=== PATIENT | male | born 1940 | race Caucasian/White ===

== ENCOUNTER → 2020-06-18 08:34 | Outpatient (CLI) | payer MEDICARE ==
[2015-06-17 12:20] VITALS: BMI 22.3
[~2020-06-18 08:34] MED LIST: CELEXA20 MG PO; CLARITIN 10 MG10 MG PO; DAPSONE25 MG PO; FLOMAX0.4 MG PO; GLUCOSAMINE & C1 CAP PO; HYDROCODONE-APA1 TAB PO; MOBIC7.5 MG PO; MULTIPLE VITAMI1 TA1 PO; NASONEX NASAL S17 GM NS; OMEPRAZOLE40 MG PO; PHENERGAN25 M1 PO; PROSCAR5 MG PO; VITAMIN B-121000 MCG PO
== END | disposition home or self-care (01) ==
LOC: D.HCCARDIO 06-09 09:00
PROVIDERS: ATTEND Internal Medicine Cardiovascular Disease
DX: I20.9 Angina pectoris, unspecified (principal)

== ENCOUNTER 2020-07-12 07:04 | Day surgery (SDC) | payer MEDICARE ==
[~2020-07-12] VITALS: Ht 180.3 cm; Wt 64.1 kg
--- NOTE | ~2020-07-12 | HEMODYNAMI ---
PATIENT:ELKE IBANEZ MEDICAL RECORD: [id number] : 40 LOCATION:D.CAT ADMISSION DATE: 07/12/20 Generatedon:19:25 Patient name: ELKE IBANEZ Patient #: [id number] SSN: [id number] : 1940 Date of study: 07/12/2020 Page: Of Hemodynamic Procedure Report Patient Data Patient Demographics Procedure consent was obtained First Name: ELKE Gender: Male Last Name: SHAMAR : 1940 Middle Initial: RAY Age: 79 year(s) Patient #: [id number] Race: SSN: [id number] Additional ID: [id number] Contact details [address]: [address] [place] [address] State: [place] City: [place] Zip code: [address] Past Medical History Performed procedures and imaging results Date Procedure Procedure Results Comments 06/18/2020 Stress testing Positive->Intermediate with SPECT MPI risk Allergies Allergen Reaction Date Comments Reported Other allergy 07/12/2020 IODINE, WHEAT, GLUTEN Admission Admission Data Admission Date: 07/12/2020 Admission Time: 7:04 Arrival Date: 07/12/2020 Arrival Time: 0:00 Admit Source: Other Insurance Payor: Private health insurance [facility] #: [id number] Height (in.): 71 BSA: 1.84 (m2) Height (cm.): 180.34 BMI: 20.36 (kg/m2) Weight (lbs.): 146 Weight (kg.): 66.22 Lab Results Lab Result Date: 07/12/2020 Lab Result Time: 0:00 Biochemistry Name Units Result Min Max BUN mg/dl 34 --(----)-* 7 18 Creatinine mg/dl 2 --(----)-* 0.6 1.3 eGFR ml/min 34 *-(----)-- 90 120 NONAFRICAN Procedure Procedure Types Cath Procedure Diagnostic Procedure C [facility] w/Coronaries Sedation Charges Moderate Sedation 10-24 minutes Procedure Description Procedure Date Procedure Date: 07/12/2020 Procedure Start Time: 9:14 Procedure End Time: 9:23 Procedure Staff Name Function Matthias Sagastume MD Performing Physician Freida Carrera, RN Nurse Saundra Syed RT Monitor Michell Gruber RT Scrub Procedure Data Cath Procedure Fluoroscopy Diagnostic fluoroscopy Total fluoroscopy Time: 0.9 time: 0.9 min min Diagnostic fluoroscopy Total fluoroscopy dose: 297 dose: 297 mGy mGy Contrast Material Contrast Material Type Amount (ml) Isovue 300 63 Entry Location Entry Primary Successful Side Size Upsize Upsize Entry Closure Castano ccessful Closure Location (Fr) 1 (Fr) 2 (Fr) Remarks Device Remarks Radial Right 6 Fr Mechanical artery Short Compression Estimated blood loss: 5 ml Diagnostic catheters Device Type Used For End Catheter Placement DIAGNOSTIC [place] 110cm 5 Multi-vessel Fr catheter ([id number]) Angiography Procedure Complications No complications Procedure Medications Medication Administration Route Dosage Oxygen etCO2 Nasal cannula 2 l/min Heparin Flush Bag added to field 2 bags (1000units/500ml NS) Lidocaine 2% added to field 20 0.9% NaCl I.V. 100 ml/hr Radial Cocktail added to field 1 syringe (Verapamil 2mg/Nitro 400mcg/Heparin 1500units) Fentanyl I.V. 25 mcg Versed I.V. 0.5 mg Fentanyl I.V. 25 mcg Versed I.V. 0.5 mg Radial Cocktail I.A. 1 syringe (Verapamil 2mg/Nitro 400mcg/Heparin 1500units) Hemodynamics Rest BSA: 1.84 (m2) O2 Consumption: Estimated: 197.21 (ml/min) O2 Consumption indexed : Estimated:107.18 (ml/min/m) Heart Rate: 51 (bpm) Pressure Samples Time Site Value (mmHg) Purpose Heart Use Rate(bpm) 9:16 LV 109/20,2 Snapshot 81 Gradients Valve Time Site Site Mean SEP/DFP Peak To Heart Use 1 2 (mmHg) (sec/min) Peak Rate (mmHg) (bpm) Aortic 9:16 LV AO 67 Snapshots Pre Cath Intra NCS Post Cath Vital Signs Time Heart Resp SPO2 etCO2 NIBP (mmHg) Rhythm Pain Sedation Rate (ipm) (%) (mmHg) Status Level (bpm) 8:54:02 51 16 97 33.8 153/77(130) NSR 0 (11) 10(A) , No pain 8:58:22 52 13 97 36 159/76(95) NSR 0 (11) 10(A) , No pain 9:02:46 53 19 98 32.3 157/75(121) NSR 0 (11) 10(A) , No pain 9:07:08 52 13 97 22.5 146/73(92) NSR 0 (11) 10(A) , No pain 9:11:28 51 13 97 15.7 145/67(99) NSR 0 (11) 9(A) , No pain 9:15:47 52 15 97 32.3 143/73(113) NSR 0 (11) 9(A) , No pain 9:20:05 59 12 95 12 113/56(81) NSR 0 (11) 9(A) , No pain Medications Time Medication Route Dose Verified Delivered Reason Notes Effectiveness by by 8:57:13 Oxygen etCO2 2 l/min Freida Freida for low 02 Nasal Debi Carrera, sats cannula RN RN 8:57:22 Heparin Flush added 2 bags Freida Freida used for Bag to Debi Carrera, procedure (1000units/500ml field RN RN NS) 8:57:32 Lidocaine 2% added 20ml Freida Matthias for local to vial CarreraSt Thierry parker anesthetic field BRANDON HERNANDEZ 8:57:41 0.9% NaCl I.V. 100 Freida Freida Per ml/hr Debi Carrera, physician RN RN 8:57:47 Radial Cocktail added 1 Freida Freida used for (Verapamil to syringe Debi Carrera, procedure 2mg/Nitro field RN RN 400mcg/Heparin 1500units) 9:04:38 Fentanyl I.V. 25 mcg Freida Freida for sedation Debi Carrera, BRANDON RN 9:04:44 Versed I.V. 0.5 mg Freida Freida for sedation Debi Carrera, BRANDON RN 9:15:33 Fentanyl I.V. 25 mcg Freida Freida for sedation Debi Carrera, BRANDON RN 9:15:35 Versed I.V. 0.5 mg Freida Freida for sedation Debi Carrera, BRANDON TAYLOR 9:15:41 Radial Cocktail I.A. 1 Freida Matthias for (Verapamil syringe Bristow, Mitesh vasodilation 2mg/Nitro RN 400mcg/Heparin 1500units) Procedure Log Time Note 8:34:50 Informed consent obtained and on chart 8:35:12 Diagnostic Cath Status : Elective 8:35:26 Arrival Date: 07/12/2020 12:00:00 AM 8:35:27 Admit Source: Other 8:35:32 Insurance Payor : Private health insurance 8:35:49 Patient Height : 71 inches 8:35:53 Patient Weight : 146 lbs 8:37:07 ACC Patient presents with Stable Angina CCS Anginal Class 2--Slight limitation of ordinary activity. 8:37:10 Procedure Status Elective Heart Cath (OP). 8:37:12 Time tracking: Regular hours (M-F 7:00 - 5:00) 8:37:17 Plan of Care:Hemodynamics will remain stable., Cardiac rhythm will remain stable., Comfort level will be maintained., Respiratory function will remain adequate., Patient/ family verbilizes understanding of procedure., Procedure tolerated without complication., Recovers from procedure without complications.. 8:37:26 H&P Date Dictated: 07/05/2020 Within 30 days and on chart.. 8:37:27 Pre-procedure instructions explained to patient. 8:37:28 Pre-op teaching completed and patient verbalized understanding. 8:37:29 Family in waiting room. 8:37:30 Patient NPO since Midnight. 8:37:58 Patient allergic to Other allergyIODINE, WHEAT, GLUTEN 8:38:04 Alarms reviewed by R. N. 8:38:04 Sharps counted by scrub and verified by R.N. 8:44:08 Saundra ALLEN(R) sent for patient. Start room use. 8:46:07 Patient received from Pre/Post Procedure Room to CCL 2 Alert and oriented. Tansferred to table in Supine position. 8:46:08 Warm blankets applied, and luis daniel hugger turned on for patient comfort. 8:46:09 Correct patient and procedure confirmed by team. 8:46:09 ECG and BP/O2 sat monitors applied to patient. 8:46:11 Full Disclosure recording started 8:46:14 Is the patient allergic to Iodine/contrast media? Yes. 8:46:42 Lab Result : BUN 34 mg/dl 8:46:42 Lab Result : eGFR NONAFRICAN 34 ml/min 8:46:42 Lab Result : Creatinine 2 mg/dl 8:46:49 Lab results completed and on chart. 8:47:00 Stress Test: yes; abnormal anterior and apical 8:47:10 IV patent on arrival in left antecubital with 0.9% NaCl at [facility]. 8:52:45 Baseline sample Acquired. 8:52:45 Vital chart was started 8:52:49 Rhythm: sinus rhythm 8:52:54 Was the patient premedicated? Yes 8:52:56 Is patient on blood thinner?No 8:52:58 Patient diabetic? No. 8:53:01 Previous problem with sedation/anesthesia? No ? 8:53:02 Snore? Yes 8:53:03 Sleep apnea? Yes 8:53:04 Deviated septum? No 8:53:05 Opens mouth fully? Yes 8:53:06 Sticks out tongue? Yes 8:53:08 Airway obstruction? No ? 8:53:10 Dentures? No ? 8:53:14 Pre procedure: right dorsailis pedis pulse 2+ Normal; easily identifiable; not easily obliterated 8:53:16 Pre procedure: left dorsailis pedis pulse 2+ Normal; easily identifiable; not easily obliterated 8:53:19 Patient pain scale 0/10 ?. 8:53:28 Right Radial & Right Groin area was prepped with chlora-prep and draped in sterile fashion 8:56:07 Risk of Mortality: 1.8 8:56:10 Risk of blood transfusion: 16.4 8:56:13 Risk of EKATERINA: 6.6 8:56:25 3b) 30-44 Moderately reduced kidney function. 8:57:13 Oxygen 2 l/min etCO2 Nasal cannula was administered by Freida Carrera RN; for low 02 sats; Verbal order read back and verified. 8:57:22 Heparin Flush Bag (1000units/500ml NS) 2 bags added to field was administered by Freida Carrera RN; used for procedure; Verbal order read back and verified. 8:57:32 Lidocaine 2% 20ml vial added to field was administered by Matthias Sagastume MD; for local anesthetic; Verbal order read back and verified. 8:57:41 0.9% NaCl 100 ml/hr I.V. was administered by Freida Carrera RN; Per physician; Verbal order read back and verified. 8:57:47 Radial Cocktail (Verapamil 2mg/Nitro 400mcg/Heparin 1500units) 1 syringe added to field was administered by Freida Carrera RN; used for procedure; Verbal order read back and verified. 9::31 Physician arrived 9::31 --------ALL STOP TIME OUT------ 9:01:32 Final Timeout: patient, procedure, and site verified with staff and physician. All members of the team are in agreement. 9:01:37 Right Radial & Right Groin site verified by team. 9:01:40 Fire Safety Assessment: A--An alcohol-based skin anteseptic being used preoperatively., C--Open oxygen or nitrous oxide is being used., D--An ESU, laser, or fiber-optic light is being used. 9:01:43 Physical assessment completed. ASA score P 2 - A patient with mild systemic disease as per Matthias Sagastume MD. 9:01:47 Maximum allowable contrast dose (3.7 X eGFR X 0.75)116 ml. 9:01:51 Sedation plan: IV Moderate Sedation Medication:Versed, Fentanyl 9:03:58 Use device set Radial Dx or PCI 9:03:59 ACIST Syringe (26749) opened to sterile field. 9:03:59 Medline Cath Pack ([id number]) opened to sterile field. 9:04:00 Bag Decanter () opened to sterile field. 9:04:00 ACIST Hand Control (33531) opened to sterile field. 9:04:00 ACIST Manifold (76315) opened to sterile field. 9:04:01 Tegaderm 4 x 4 (1626W) opened to sterile field. 9:04:01 MBrace Wrist Support ([id number]) opened to sterile field. 9:04:03 SHEATH 6FR RAIN (8833329) opened to sterile field. 9:04:04 EMERALD Guide Wire (858-927) opened to sterile field. 9:04:38 Fentanyl 25 mcg I.V. was administered by Freida Carrera RN; for sedation; Verbal order read back and verified. 9:04:44 Versed 0.5 mg I.V. was administered by Freida Carrera RN; for sedation; Verbal order read back and verified. 9:12:31 Zero performed for pressure channel P1 9:14:19 Procedure started. 9:14:25 Local anesthetic to right radial artery with Lidocaine 2% by Matthias Sagastume MD.INITIAL ACCESS ONLY 9:14:33 A 6 Fr Short sheath was inserted into the Right Radial artery 9:15:24 A DIAGNOSTIC [place] 110cm 5 Fr catheter (828757) was advanced over the wire and used for Multi-vessel Angiography. 9:15:33 Fentanyl 25 mcg I.V. was administered by Freida Carrera RN; for sedation; Verbal order read back and verified. 9:15:35 Versed 0.5 mg I.V. was administered by Freida Carrera RN; for sedation; Verbal order read back and verified. 9:15:41 Radial Cocktail (Verapamil 2mg/Nitro 400mcg/Heparin 1500units) 1 syringe I.A. was administered by Matthias Sagastume MD; for vasodilation; Verbal order read back and verified. 9:16:21 LV hemodynamics recorded. 9:16:22 LV gram done using VERAS 9:16:24 Injector settings: Ml/sec: 5, Volume: 15, 9:16:37 EF : 55 % 9:17:01 LCA angiography performed. 9:17:03 Injector settings: Ml/sec: 3, Volume: 6, 9:19:07 RCA angiography performed. 9:19:11 Injector settings: Ml/sec: 3, Volume: 6, 9:19:46 Catheter removed. 9:19:50 ZEPHYR REGULAR TR BAND (403707) opened to sterile field. 9:20:01 Sheath removed intact; hemostasis achieved with Mechanical Compression to the Right Radial artery. 9:20:03 Procedure ended.(Physican Out) 9:21:31 Fluoroscopy time 00.90 minutes. 9:21:35 Fluoroscopy dose: 297 mGy 9:21:35 Flurop Dose total: 297 9:21:40 Dose Area Product 18188 mGy/cm. 9:21:44 Contrast amount:Isovue 300 63ml. 9:21:46 Maximum allowable dose exceeded? No. 9:21:47 Sharps counted by scrub and verified by R.N. 9:21:50 [place] band inflated with 10cc of air. 9:21:52 Insertion/operative site no bleeding no hematoma. 9:21:58 Post right radial artery:stable 9:22:01 Post Procedure Pulses reassessed and unchanged 9:22:03 Post procedure rhythm: unchanged. 9:22:05 Estimated blood loss: 5 ml 9:22:06 Post procedure instruction explained to patient.Patient verbalizes understanding. 9:22:07 Patient needs reinforcement of post procedure teaching. 9:22:53 Procedure type changed to Cath procedure, Diagnostic procedure, LHC, [facility] w/Coronaries, Sedation Charges, Moderate Sedation 10-24 minutes 9:22:54 Procedure and supply charges have been captured, reviewed, submitted and are correct. 9:22:58 Procedure Complication : No complications 9:23:00 Vital chart was stopped 9:23:05 [facility] Findings: MVD- CABG consult 9:23:06 Operative report dictated upon procedure completion. 9:23:07 See physician's report for complete and final results. 9:23:08 Report given to Pre/Post Procedure Room. 9:23:11 Patient transfered to Pre/Post Procedure Room with Stretcher. 9:23:16 Procedure ended. 9:23:16 Full Disclosure recording stopped 9:23:22 End room use (Document Last) Device Usage Item Name Manufacture Quantity Catalog Hospital Part Current Minima l Lot# / Number Charge Number Stock Stock Serial# Code ACIST Acist 1 77537 [id number] 182053 [id number] 20 Syringe Medical (29202) Systems Inc Medline Medline 1 [id number] 73414 058131 5 Cath Pack ([id number]) Bag Microtek 1 172241 76513 992069 5 Decanter Medical Inc. () ACIST Hand Acist 1 71258 741692 828678 433775 5 Control Medical (55098) Systems Inc ACIST Acist 1 20987 655813 081228 579885 5 Manifold Medical (63915) Systems Inc Tegaderm 4 3M 1 1626W 577613 101589 259491 5 x 4 (1626W) MBrace Advanced 1 [id number] 805314 23755 165546 5 Wrist Vascular Support Dynamics ([id number]) SHEATH 6FR Cardinal 1 1383908 452079 5715537 435812 5 [facility] (1143242) EMERALD Cardinal 1 502-455 710033 250788 223467 5 Guide Wire Health (646-827) DIAGNOSTIC Terumo 1 68-2633 865302 136041 917700 5 [place] 110cm 5 Fr catheter (152821) ZEPHYR Cardinal 1 927037 865065 5418191 131165 5 REGULAR TR Health BAND (572426) Signature Audit [place] Stage Time Signature Unsigned Intra-Procedure 07/12/2020 Saundra Syed 9:24:11 AM RT(R) Intra-Procedure 07/12/2020 Freida Carrera, 9:24:52 AM RN Intra-Procedure 07/12/2020 Matthias Miller 9:25:06 AM Thierry HERNANDEZ Signatures Performing Physician : Signature : Matthias Sagastume MD Date : Time : Nurse : Freida Carrera, Signature : RN Date : Time : Monitor : Saundra Syed RT Signature : Date : Time : [address] [address]
[2020-07-12] MEDS ORDERED: GABAPENTIN300 MG PO (07:45)
[2020-07-12 07:59] VITALS: BP 118/57; Ht 180.3 cm; Wt 64.1 kg
[2020-07-12 08:10] LABS: BASOPHILS 0 % (0-2); EOSINOPHILS 0 % (0-7); HEMATOCRIT 28.9 % (42.0-54.0); HEMOGLOBIN 9.5 g/dL (13.5-17.5); IMMATURE GRANULOCYTES 0.4 % (0-5); LYMPHOCYTES 5.4 % (15-50); MCH 31.8 pg (26.0-34.0); MCHC 32.9 g/dL (31.0-37.0); MCV 96.7 fL (80.0-100.0); MEAN PLATELET VOLUME 8.8 fL (7.4-10.4); MONOCYTES 1.6 % (2-11); NEUTROPHIL ABS# 5.11 10x3/uL (1.78-5.38); NEUTROPHILS 92.6 % (40-80); PLATELET COUNT 144 10x3/uL (130-400); RBC 2.99 10x6/uL (4.20-6.10); RDW 12.4 % (11.5-14.5); WBC 5.5 10x3/uL (4.8-10.8)
[2020-07-12 08:27] LABS: ANION GAP 12.7 mmol/L (8-16); CALCIUM 8.8 mg/dL (8.5-10.1); CHOL - HDL RATIO 2.1 ratio (2.3-4.9); POTASSIUM - SERUM 4.7 mmol/L (3.5-5.1)
--- NOTE | 2020-07-12 09:30 | NUR ---
PT RECEIVED VIA STRETCHER FROM [facility] SPECIALIST BACK TO ROOM 9 FOR RECOVERY. PT SLEEPING BUT VERALLY AROUSABLE. IV PATENT INFUSING VIA L ARM PER ORDERS. PT PLACED ON CARDIAC MONITORS AND O2 AT 2L/NC. ZYPER BAND AND IMMOBILIZER TO R ARM/WRIST. NO S/S HEMATOMA OR BLEEDING. PULSES PALPALABLE AND CAP REFILL BRISK. DR LATHAM WAS IN ROOM AND SPOKE WITH REGARDING PROCEDURE RESULTS AND PLAN OF CARE PRIOR TO PT ARRIVAL. CALL LIGHT IN REACH
--- NOTE | 2020-07-12 09:45 | NUR ---
PT SLEEPING, VERBALLY AROUSABLE. ZBAND AND IMMOBILIZER IN PLACE NO S/S HEMATOMA OR BLEEDING NOTED. PULSES PALPABLE, CAP REFILL BRISK. VSS AT PRESENT. AT BS, CALL LIGHT IN REACH
--- NOTE | 2020-07-12 10:15 | NUR ---
PT RESTING COMFORTABLY, DENIES PAIN OR NEEDS AT THIS TIME. ZBAND AND IMMOBILIZER IN PLACE, NO S/S HEMATOMA OR BLEEDING NOTED. VSS. CALL LIGHT IN REACH, REMAINS AT BS.
--- NOTE | 2020-07-12 10:40 | NUR ---
4CC AIR REMOVED FROM Z BAND, NO BLEEDING OR S/S HEMATOMA NOTED. PO FLUIDS GIVEN, PT OFFERED A SANDWICH BUT DECLINES AT THIS TIME.
--- NOTE | 2020-07-12 11:02 | NUR ---
2 ADD'L CC AIR REMOVED FROM Z BAND, NO BLEEDING OR SWELLING NOTED. PT TOLERATING PO FLUIDS. VSS. CALL LIGHT REMAINS IN REACH
--- NOTE | 2020-07-12 11:20 | NUR ---
REMAINING AIR AND Z BAND REMOVED. NO BLEEDING OR HEMATOMA NOTED. 2X2 AND SM TEGADERM DRESSING APPLIED. IMMOBILIZER REPOSITIONED. DISCHARGE INSTRUCTIONS REVIEWED W PT AND , BOTH VERBALIZED UNDERSTANDING. IV REMOVED W CATH INTACT, MONITORS REMOVED AND PT UP TO DRESS FOR DISCHARGE.
--- NOTE | 2020-07-12 11:42 | NUR ---
PT TO BR VIA WC, VOIDING W/O DIFFICULITY. PT THEN DISCHARGED VIA WC TO WAITING IN PRIVATE VEHICLE. PT HAD ALL BELONGINGS AND DISCHARGE PAPERWORK
--- NOTE | 2020-07-12 16:00 | OP ---
PATIENT NAME: ELKE IBANEZ MEDICAL RECORD: [id number] :40 LOCATION:D.CAT ADMISSION DATE: SURGEON: KAVON LATHAM MD DATE OF OPERATION: 07/12/2020 PROCEDURES: Left heart catheterization, selective coronary angiography, right radial approach. CATHETERS: Radial sheath. Midway catheter. The procedure was well tolerated. The patient returned to [place]. Sheath removed. TR band was placed. FINDINGS: Left ventriculography in 30-degree VERAS view: Normal wall motion and normal systolic function. CORONARY ANATOMY: Left main: Left main is free of disease. LAD: At the takeoff of 2 large diagonals has a true ostial stenosis for both diagonals. The LAD itself has 70-80% stenosis after the takeoff of the diagonals. There is a large ramus branch and has ostial stenosis of 90% just after the true ostial discharge takeoff from the left main. Circumflex: Free of disease. Right coronary artery: Free of disease. IMPRESSION: Multivessel coronary artery disease, obviously high risk anatomy from an interventional standpoint. We will ask Dr. Ramirez for consultation for probable coronary artery bypass grafting. TRANSINT:[id number] Voice Confirmation ID: [id number] DOCUMENT ID: [id number] KAVON LATHAM MD at 1600 CC: [id number] DICTATION DATE: 07/12/20927 EQUIPMENT DRIVER: 07/12/20 1312 [facility] 07/12/20 [address] [place] [address]
== END 2020-07-12 11:40 | disposition home or self-care (01) ==
LOC: D.CATH 07:04
PROVIDERS: ATTEND Internal Medicine Interventional Cardiology
DX: I20.9 Angina pectoris, unspecified (principal); R07.9 Chest pain, unspecified

== ENCOUNTER 2020-07-26 13:00 | Inpatient (IN) | payer MEDICARE, OTHER ==
[~2020-07-26] VITALS: Ht 177.8 cm; Wt 66.6 kg
[~2020-07-26 13:00] MED LIST changes: +GABAPENTIN300 MG PO
[2020-07-26 16:13] LABS: BASOPHILS 0.7 % (0-2); EOSINOPHILS 1.4 % (0-7); HEMATOCRIT 27.5 % (42.0-54.0); HEMOGLOBIN 8.8 g/dL (13.5-17.5); IMMATURE GRANULOCYTES 0.3 % (0-5); LYMPHOCYTE ABS# 1.03 10x3/uL (1.32-3.57); LYMPHOCYTES 17.9 % (15-50); MCH 31.8 pg (26.0-34.0); MCV 99.3 fL (80.0-100.0); MEAN PLATELET VOLUME 8.6 fL (7.4-10.4); MONOCYTES 7.1 % (2-11); NEUTROPHIL ABS# 4.19 10x3/uL (1.78-5.38); NEUTROPHILS 72.6 % (40-80); PLATELET COUNT 163 10x3/uL (130-400); RBC 2.77 10x6/uL (4.20-6.10); RDW 12.5 % (11.5-14.5); WBC 5.8 10x3/uL (4.8-10.8)
[2020-07-26 16:23] LABS: APTT 31.6 SECONDS (22.8-39.4); INR 1.21 (0.85-1.17); PROTIME 14.2 SECONDS (11.6-15.0)
[2020-07-26 16:27] LABS: BILIRUBIN NEGATIVE (NEGATIVE); KETONE NEGATIVE (NEGATIVE); NITRITE NEGATIVE (NEGATIVE); UROBILINOGEN NORMAL mg/dL (< 2)
[2020-07-26 16:32] LABS: BACTERIA FEW HPF (NONE SEEN)
[2020-07-26 16:39] LABS: ALBUMIN 3.6 g/dL (3.4-5.0); ANION GAP 10.4 mmol/L (8-16); BILIRUBIN - TOTAL 0.59 mg/dL (0.2-1.3); CALCIUM 8.6 mg/dL (8.5-10.1); CARBON DIOXIDE 28.3 mmol/L (21.0-32.0); CREATININE - SERUM 1.7 mg/dL (0.6-1.3); PHOSPHOROUS 4.8 mg/dL (2.5-4.9); POTASSIUM - SERUM 4.7 mmol/L (3.5-5.1); PROTEIN - SERUM 6.4 g/dL (6.4-8.2); T4 THYROXIN - FREE 0.75 ng/dL (0.76-1.46); THYROID STIMULATING HORMONE 1.6 uIU/mL (0.36-3.74); URIC ACID 6.5 mg/dL (2.6-7.2)
[2020-07-29] VITALS (48 sets, daily range): BP systolic 96–160; BP diastolic 46–95; BMI 20.4; BMI 21.8
[2020-07-29] MEDS ORDERED: OMEPRAZOLE40 MG PO (05:41)
[2020-07-29] MEDS ORDERED: GALZIN25 MG PO (05:42)
[2020-07-29] MEDS ORDERED: VITAMIN D325 MC1 PO (05:43)
[2020-07-29] MEDS ORDERED: BAYER CHEWABLE81 MG PO (05:45)
[2020-07-29] MEDS ORDERED: glucosamine chondroi (05:45)
--- NOTE | 2020-07-29 08:01 | NUR ---
CVL AND ARTERIAL LINE PLACED BY ANESTHESIA, STOCKING AND SCD PLACED POST OP, SOME DIFFICULTY PLACEING CARMONA DR COOL NOTIFIED, IRMA.
[2020-07-29 12:53] LABS: BASOPHILS 0.2 % (0-2); EOSINOPHILS 0.7 % (0-7); HEMATOCRIT 34.2 % (42.0-54.0); HEMOGLOBIN 11.2 g/dL (13.5-17.5); IMMATURE GRANULOCYTES 0.3 % (0-5); LYMPHOCYTE ABS# 0.84 10x3/uL (1.32-3.57); LYMPHOCYTES 7.8 % (15-50); MCH 31.8 pg (26.0-34.0); MCHC 32.7 g/dL (31.0-37.0); MCV 97.2 fL (80.0-100.0); MEAN PLATELET VOLUME 9.6 fL (7.4-10.4); MONOCYTES 6.3 % (2-11); NEUTROPHIL ABS# 9.15 10x3/uL (1.78-5.38); NEUTROPHILS 84.7 % (40-80); RBC 3.52 10x6/uL (4.20-6.10); RDW 13.6 % (11.5-14.5); WBC 10.8 10x3/uL (4.8-10.8)
[2020-07-29 12:56] LABS: PLATELET COUNT 117 10x3/uL (130-400)
--- NOTE | 2020-07-29 13:00 | NUR ---
PT ARRIVED TO UNIT AT 1232 VIA BED. CONNECTED TO BULK FLUIDS HANDLER. ETT SIZE 8.0, 24 AT THE LIP RIGHT. TPM IN PLACE AAI 80/10/0.5. RIJ CVL WITH PLASMOLYTE AT 100ML/HR AND NILA AT 0.6MCG/KG/MIN. RIGHT RADIAL JAVON IN PLACE. MIDSTERNAL INCISON MERCEDEZ, SUBTERNAL CT CONNECTED TO 20CM SUCTION. NO AIR LEAK NOTED. LEFT RAKESH DRAIN NOTED. CARMONA CATHETER IN PLACE WITH BLOODY URINE NOTED. RLE HARVEST SITES WRAPPED IN COBAN DRESSING. WRIST RESTRAINTS APPLIED UPON ARRIVAL PER ORDER. SAFETY MEASURES IN PLACE. NURSE AT BEDSIDE FOR CLOSE MONITORING.
[2020-07-29 13:14] LABS: ALBUMIN 2.1 g/dL (3.4-5.0); ANION GAP 13.9 mmol/L (8-16); BILIRUBIN - TOTAL 0.78 mg/dL (0.2-1.3); CALCIUM 7.9 mg/dL (8.5-10.1); CARBON DIOXIDE 22.1 mmol/L (21.0-32.0); CREATININE - SERUM 1.2 mg/dL (0.6-1.3); MAGNESIUM - SERUM 2.4 mg/dL (1.8-2.4); PROTEIN - SERUM 3.7 g/dL (6.4-8.2)
--- NOTE | 2020-07-29 13:24 | OP ---
PATIENT NAME: ELKE IBANEZ MEDICAL RECORD: [id number] :40 LOCATION:D.CVI D.CV06 ADMISSION DATE:07/29/20 SURGEON: EJISON COOL MD DATE OF OPERATION: 07/29/2020 SURGEON: Jeison Cool MD PROCEDURE PERFORMED: 1. Coronary artery bypass graft times 4 (left internal mammary artery to LAD, reverse saphenous vein graft from aorta to the ramus intermedius and from the side of that vein graft sequentially to the proximal and distal branches of the bifurcating diagonal). 2. Endoscopic saphenous vein harvest. PREOPERATIVE DIAGNOSIS: Coronary artery disease. POSTOPERATIVE DIAGNOSIS: Coronary artery disease. ANESTHESIA: General endotracheal anesthesia. ADDITIONAL DIAGNOSES: Chronic anemia and celiac disease. COMPLICATIONS: None. SPECIMENS: None. CONDITION: Stable. DISPOSITION: CV ICU. Blood loss total with 3 packed red blood cells and 1 platelets. OPERATIVE FINDINGS: 1. The patient had good quality greater saphenous vein from the right lower extremity. 2. A 2 to 3 mm internal mammary with good flow. The LAD was a 1.5 mm vessel with severe disease, worse than expected from the angiogram. 3. Unexpectedly fatty heart with good contractility. The diagonal vessels were deep in the epicardial fat 1.5 mm vessels. 4. Ramus intermedius 2.0 mm. 5. History of chronic anemia. PROCEDURE INDICATION: Coronary artery disease. PROCEDURE IN DETAIL: The patient was brought to the operating suite. General anesthesia was obtained. The patient was prepped and draped. Greater saphenous vein was harvested endoscopically from the right lower extremity. Side branches were divided with electrocautery. Vessels were ligated proximally and distally removed. Side branches were divided and tied and thin. Sites were oversewn. The leg was irrigated and closed in 2 layers. Median sternotomy incision was made. Subcutaneous tissue was divided with electrocautery. Sternum was divided with a saw. Left hemisternum was elevated. Left pleural cavity was entered. Left internal mammary artery and vein was taken down as a pedicle graft. Sternal retractor was placed. Pericardium was OPERATIVE REPORT [id number] ELKE IBANEZ opened. Heparin was given. Aorta was cannulated. Dual stage venous cannula was inserted. The internal mammary was clipped distally and made ready for anastomosis. Activated clotting time was appropriately elevated and the patient was placed on cardiopulmonary bypass. Sites for distal anastomosis were selected. The patient's temperature was drifted down where the antegrade cardioplegia cannula was inserted. Crossclamp was placed. Cardioplegia given antegrade. This was repeated at 15 to 20 minute intervals during the crossclamp time. Distal anastomosis was performed in standard technique. Proximal anastomosis one to the aorta with a 4.0 mm punch and one end-to-side [id number] anastomosis, which was used in the de-airing site after removing the cross clamp, then the patient resumed a spontaneous rhythm. Atrial and ventricular pacing wires were placed due to sinus bradycardia. The patient was paced, fully rewarmed, weaned from cardiopulmonary bypass and was stable. The patient was decannulated. Cannulation sites were oversewn. Protamine was given. Thorough irrigation was undertaken. Hemostasis was ensured. The grafts lay appropriately. Good Doppler signal in the internal mammary artery. The left chest was evacuated and irrigated. The internal mammary harvest site was inspected for bleeding. Pericardial fat was loosely reapproximated in the midline. Drains in the mediastinum, one with the tip in the right pleural cavity, one in the left pleural cavity. The sternum was closed with wires. Fascia was closed. Subcutaneous tissue was closed. Skin was closed. Dermabond was placed. The needle and sponge counts were reported as correct and the patient was taken to the ICU in stable condition. TRANSINT:[id number] Voice Confirmation ID: [id number] DOCUMENT ID: [id number] JEISON COOL MD at 1324 CC: STARLA TAYLOR MD and KAVON LATHAM MD [id number] DICTATION DATE: 07/29/20 1246 RENEWALS SPECIALIST: 07/29/20 1313 ADM IN [facility] [address] [place] [address]
--- NOTE | 2020-07-29 13:26 | NUR ---
UNIT OF PLATELETS INITIATED PER DR. COOL'S ORDER.
[2020-07-29 13:49] LABS: INR 1.84 (0.85-1.17); PROTIME 19.7 SECONDS (11.6-15.0)
[2020-07-29 13:50] LABS: APTT 39.8 SECONDS (22.8-39.4)
--- NOTE | 2020-07-29 13:52 | NUR ---
PT AND INR RESULTS REPORTED TO DR. COOL. ORDERED 2 FFP TO BE GIVEN.
--- NOTE | 2020-07-29 14:09 | NUR ---
BLOOD BANK CALL TO SEE WHEN FFP WOULD BE READY. WAS INFORMED THAT IT WILL BE ABOUT 30MIN.
--- NOTE | 2020-07-29 14:45 | NUR ---
PT STILL NOT OPENING EYES BUT FOLLOW SOME SIMPLE COMMANDS. VENT RATE TURNED DOWN TO 10 PER RESPIRATORY THERAPY.
--- NOTE | 2020-07-29 15:05 | NUR ---
2 UNITS FFP FINISHED INFUSING AT THIS TIME PER ORDER. PT TOLERATED WELL. WILL CONTINUE TO MONITOR.
--- NOTE | 2020-07-29 16:37 | NUR ---
ABG'S AFTER 1HR ON CPAP TRIAL REPORTED TO DR. COOL. WAIT FOR PATIENT TO BREATHE BETTER BEFORE EXTUBATING. RESPIRATORY THERAPY NOTIFIED.
--- NOTE | 2020-07-29 17:35 | NUR ---
UPDATE GIVEN TO DR. COOL ON CT OUTPUT. AT 1700 PT PUT OUT 80CC. AND HAS PUT OUT ABOUT 50CC IN LAST 1/2HR. URINE REMAINS BLOODY. ORDERED H&H AND PT &INR.
[2020-07-29 17:50] LABS: HEMATOCRIT 28.7 % (42.0-54.0); HEMOGLOBIN 9.3 g/dL (13.5-17.5)
[2020-07-29 17:59] LABS: INR 1.5 (0.85-1.17); PROTIME 16.8 SECONDS (11.6-15.0)
--- NOTE | 2020-07-29 17:59 | NUR ---
H&H 9.[address]. COOL NOTIFIED. WAITING ON INR RESULTS.
--- NOTE | 2020-07-29 18:10 | NUR ---
INR 1.50. DR. COOL NOTIFIED.
--- NOTE | 2020-07-29 18:13 | NUR ---
ORDERS RECEIVED. GIVE 1UNIT PRBC'S, 2 FFP, AND 1 PLATELETS.
--- NOTE | 2020-07-29 18:32 | NUR ---
PT CONTINUES ON SPONTANEOUS TRIAL. BREATHING RATE 12BREATHS/MIN. WAKES UP TO VOICE BUT DOES NOT REMAIN AWAKE AT THIS TIME. DR. COOL NOTIFIED. HE WANTS TO WAIT UNTIL PLATELET ARE GIVEN TO RECHECK ABG'S.
--- NOTE | 2020-07-29 18:37 | NUR ---
1 UNIT OF PRBC INITIATED AT THIS TIME PER ORDER.
[2020-07-30] VITALS (54 sets, daily range): BP systolic 79–131; BP diastolic 36–74; Ht 177.8 cm; Wt 66.6 kg
[2020-07-30 05:17] LABS: ALBUMIN 2.6 g/dL (3.4-5.0); BILIRUBIN - TOTAL 0.66 mg/dL (0.2-1.3); CALCIUM 7.6 mg/dL (8.5-10.1); CARBON DIOXIDE 25.9 mmol/L (21.0-32.0); CREATININE - SERUM 1.4 mg/dL (0.6-1.3)
[2020-07-30 05:20] LABS: HEMATOCRIT 26.3 % (42.0-54.0); HEMOGLOBIN 8.4 g/dL (13.5-17.5); MCH 30.7 pg (26.0-34.0); MCHC 31.9 g/dL (31.0-37.0); MEAN PLATELET VOLUME 9.5 fL (7.4-10.4); RBC 2.74 10x6/uL (4.20-6.10); WBC 9.1 10x3/uL (4.8-10.8)
[2020-07-30 05:21] LABS: ANION GAP 11.3 mmol/L (8-16); POTASSIUM - SERUM 4.2 mmol/L (3.5-5.1)
--- NOTE | 2020-07-30 13:26 | NUR ---
NOTED ORDER TO D/C INSULIN GTT AT THIS TIME-FSBS 222-PAGED [facility] FOR ADDITIONAL ORDERS-
--- NOTE | 2020-07-30 16:23 | NUR ---
1500-DR NOGUEIRA NOTIFIED OF [id number] AND 3UNITS ON INSULIN GTT 1545-INSULIN GTT D/C'D-S/S ORDERED 1615-DR COOL AT BEDSIDE-PT ASSISTED TO BED-TOLERATED WELL-R RADIAL JAVON D/C'D-TOLERATED WELL-R IJ SALINE LOCKED
--- NOTE | 2020-07-30 17:14 | TEE ---
PATIENT:ELKE IBANEZ MEDICAL RECORD: [id number] LOCATION:[place] [address] AGE OF PATIENT: 79 ADMISSION DATE: 07/29/20 SEX: M REFERRING PHYSICIAN: INTERPRETING PHYSICIAN: KAVON LATHAM MD TRANSESOPHAGEAL ECHOCARDIOGRAM Date: 07/29/20 BOBBY CHARGE Y INDICATIONS: CABG PREMEDICATIONS: PATIENT'S RESPONSE PROCEDURE DOPPLER MEASUREMENTS: LVIT LA PA RA LVOT RVOT Asc. Ao AV Gradient Peak AV Mean AV Area MV Gradient Peak MV Mean MV Area INTERPRETATION: Doppler: 2-D: COLOR FLOW DOPPLER NORMAL SALINE STUDY: MISCELLANOUS: DIAGNOSIS: PLAN: Health Program Analyst:3 Dr. Jaffe It Software Developer: Alena FABIAN COMMENTS: DATE OF SERVICE: 07/29/2020 PROCEDURE: Intraoperative BOBBY. FINDINGS: Preop shows normal LV wall motion and wall thickening, EF greater than or equal to 55%. Aortic valve is tricuspid. Good valve excursion. Left atrium appears normal. Mitral valve appears normal. Mild MR. Postop, good wall motion in all cardiac segments and good function, EF 55% or better. Aortic valve is tricuspid with good valve excursion. Left atrium appears normal. TRANSESOPHAGEAL ECHOCARDIOGRAM REPORT [id number] SPEEDY IBANEZ Mitral valve appears normal with mild MR. TRANSINT:[id number] Voice Confirmation ID: [id number] DOCUMENT ID: [id number] at 1714 CC: [id number] DICTATION DATE: 07/29/20 1427 PHARMACY CASHIER: 07/29/20 2236 ADM IN [place] [id number] [place] [address]
--- NOTE | 2020-07-30 17:14 | OP ---
PATIENT NAME: ELKE IBANEZ MEDICAL RECORD: [id number] :40 LOCATION:[facility] ADMISSION DATE:07/29/20 SURGEON: KAVON LATHAM MD DATE OF OPERATION: 07/29/2020 PROCEDURE: PTCA stenting to the ramus intermedius branch. DESCRIPTION OF PROCEDURE: After a 6-Brazilian sheath was placed in the right femoral artery, we actually used the IFR wire to cross the severely 98% stenosed ramus down this portion of vessel. Stents deployed were 2.75 x 26 and 2.75 x 18 Jon drug-eluting stents up to 16 atmospheres for 45 seconds. Final angiography shows excellent resolution of a diffuse 80% stenosis. No significant residual. IFR wire was almost normalized at 0.96 after the procedure. KACIE flow was 3 throughout the procedure. Sheath was closed with ExoSeal device. The patient was placed on Plavix. Heparin was used during the case. TRANSINT:[id number] Voice Confirmation ID: [id number] DOCUMENT ID: [id number] KAVON LATHAM MD at 1714 CC: [id number] DICTATION DATE: 07/29/20 1426 TOW BOAT CAPTAIN: 07/29/20 2319 ADM IN [place] [id number] [place] [id number]
[2020-07-31] VITALS (24 sets, daily range): BP systolic 99–120; BP diastolic 45–60
[2020-07-31 05:15] LABS: HEMATOCRIT 25.4 % (42.0-54.0); HEMOGLOBIN 8.1 g/dL (13.5-17.5); MCH 30.7 pg (26.0-34.0); MCHC 31.9 g/dL (31.0-37.0); MCV 96.2 fL (80.0-100.0); MEAN PLATELET VOLUME 9.2 fL (7.4-10.4); RBC 2.64 10x6/uL (4.20-6.10)
[2020-07-31 05:35] LABS: ALBUMIN 2.5 g/dL (3.4-5.0); ANION GAP 9.2 mmol/L (8-16); BILIRUBIN - TOTAL 0.65 mg/dL (0.2-1.3); CALCIUM 8.2 mg/dL (8.5-10.1); CREATININE - SERUM 1.1 mg/dL (0.6-1.3); POTASSIUM - SERUM 4.2 mmol/L (3.5-5.1); PROTEIN - SERUM 5.1 g/dL (6.4-8.2)
--- NOTE | 2020-07-31 08:08 | NUR ---
ASSISTED TO BEDSIDE CHAIR-TOLERATED WELL-SR ON MONITOR-REQUESTED JUICE AND JELLO FOR BREAKFEST
--- NOTE | 2020-07-31 10:34 | NUR ---
0930-AMBULATED IN HALLWAY WITH PHYSICAL THERAPY-TOLERATED WELL-DR COOL AT BEDSIDE-INFORMED OF CHEST TUBE DRAINAGE-CHARTED WELL-CHEST TUBE PLACED TO WATER SEAL DIRECTED 1010-PRBC [id number]-[id number] ORDERED PT AWAKE AND ALERT-SET TO RUN OVER 1.5HR
--- NOTE | 2020-07-31 11:54 | NUR ---
PRBC INFUSED-DR HAN AT BEDSIDE-NO FURTHER ORDERS AT THIS TIME
--- NOTE | 2020-07-31 14:14 | NUR ---
AMBULATED WITH PHYSICAL THERAPY-O2 AT 2L-SR ASSISTED TO BED-
--- NOTE | 2020-07-31 17:52 | NUR ---
UCAF-168-6 SEC-PT STATED DREAMING ABOUT EVENTS AT HOME-SPONT RETURN TO SR-R WRIST JAVON SUTURE REMOVED
--- NOTE | 2020-07-31 23:07 | NUR ---
PATIENT HR 140 BRIEFLY, THEN DROPPED DOWN TO 58. NURSE ENTERED ROOM AND HR BACK TO 70'S. PATIENT WAS SLEEPING WELL WITHOUT ANY S/S OF DISTRESS.
[2020-08-01] VITALS (30 sets, daily range): BP systolic 81–118; BP diastolic 49–67
--- NOTE | 2020-08-01 00:55 | NUR ---
0755- Dr Ramirez contacted for patient HR. Fluxuating between 50 and 140 and occasional bigeminy. New orders received and entered. Meds administered. Robert Gruber RN
--- NOTE | 2020-08-01 01:40 | NUR ---
Patient feeling pressure in bladder. Catheter draining minimal for last 2 hours. Irrigated pabon cath with 10cc NS. Sedement and small clots noted to tubing after irrigation and pabon cath draining without issue. Robert Gruber RN
[2020-08-01 04:33] LABS: HEMATOCRIT 26.8 % (42.0-54.0); HEMOGLOBIN 8.6 g/dL (13.5-17.5); MCH 30.1 pg (26.0-34.0); MCHC 32.1 g/dL (31.0-37.0); MEAN PLATELET VOLUME 9.4 fL (7.4-10.4); RBC 2.86 10x6/uL (4.20-6.10); WBC 6.6 10x3/uL (4.8-10.8)
[2020-08-01 04:48] LABS: MCV 93.7 fL (80.0-100.0)
[2020-08-01 05:05] LABS: ALBUMIN 2.2 g/dL (3.4-5.0); ALKALINE PHOSPHATASE 57 U/L (30-120); ALT (SGPT) 33 U/L (10-68); BILIRUBIN - TOTAL 0.51 mg/dL (0.2-1.3); CALC OSMOLALITY 283 mosm/kg (275-300); CALCIUM 8.1 mg/dL (8.5-10.1); CARBON DIOXIDE 26.3 mmol/L (21.0-32.0); CHLORIDE - SERUM 106 mmol/L (98-107); GLUCOSE 135 mg/dL (74-106); POTASSIUM - SERUM 3.9 mmol/L (3.5-5.1); PROTEIN - SERUM 4.9 g/dL (6.4-8.2); SODIUM 139 mmol/L (136-145); UREA NITROGEN 24 mg/dL (7-18); eGFR NON AFRICAN AMERICAN 76 mL/min (90-120)
--- NOTE | 2020-08-01 06:37 | NUR ---
DR COOL CONTACTED. PATIENT HR 130S AND DROPPING TO 40S. PACER TURNED ON DD AT A RATE OF 50 AND NEW ORDER FOR AMIODORONE GIVEN. Robert BRICEÑO RN
--- NOTE | 2020-08-01 10:19 | NUR ---
0700-NOTED HEART RHYTHM:RAPID CHANGE BETWEEN UCAF/SR WITH PAC AND 75-100% PACED AP VS OR DUAL PACED-REMAINS IN BED-PT STATES FEELS NO DISTRESS-RESP RX HELD AT THIS TIME-CORDARONE DECREASED TO 0.5MG PER ORDER-K LEVEL 3.9-REPLACEMENT STARTED PER PROTOCOL 0800-NOTED LONGER PERIODS OF SR WITH PAC-CONTINUED TO BE INTERSPERSED WITH UCAF AND PACED-LESSER FREQUENCY-ASSISTED TO BEDSIDE COMMODE-THEN ASSISTED TO CHAIR-REVIEWED MONITOR THROUGH 2 LEADS NOTED ?JUNCTIONAL? TACH WITH ATRIUM SENS ONLY? 09-HELD LOPRESSOR PO -FOR DR COOL REVIEW THIS AM
--- NOTE | 2020-08-01 18:08 | NUR ---
1030-DR COOL AT BEDSIDE-STATUS REPORT GIVEN-PACEMAKER TURNED OFF AT THIS TIME DIRECTED UCAF-128- 1040-DR COOL AT BEDSIDE-PACER ADJUSTED BY SAME TO VVI50/10/SENS1 NOTED JUCTIONAL RHYTHM AT THIS TIME-CORDARONE GTT TURNED OFF DIRECTED--MEDIASTINAL CHEST TUBES REMOVED BY DR COOL-ATRIAL PACER WIRE SECURED-VENTRICULAR WIRE ATTACHED TO PACEMAKER ONLY -DIRECTED TO BEDREST AT THIS TIME-MAP BP -56-NEOSYNEPHRINE GTT STARTED AT 0.3 MCG/KG/MIN 1330-NOTED PRIMARILY-SR WITH PAC ON MONITOR-NEOSYNEPHRINE OFF AT THIS TIME MEAN BP 74-HR 72 1630-ASSISTED PT TO BEDSIDE COMMODE 1700ASSISTED TO BEDSIDE CHAIR-DINNER MEAL SR WITH PAC
[2020-08-02] VITALS (19 sets, daily range): BP systolic 93–127; BP diastolic 47–70
[2020-08-02 04:34] LABS: HEMATOCRIT 25.4 % (42.0-54.0); HEMOGLOBIN 8.2 g/dL (13.5-17.5); MCH 29.9 pg (26.0-34.0); MCHC 32.3 g/dL (31.0-37.0); MCV 92.7 fL (80.0-100.0); MEAN PLATELET VOLUME 9.3 fL (7.4-10.4); RBC 2.74 10x6/uL (4.20-6.10); WBC 5.6 10x3/uL (4.8-10.8)
[2020-08-02 04:49] LABS: ALBUMIN 2.1 g/dL (3.4-5.0); ALKALINE PHOSPHATASE 65 U/L (30-120); ALT (SGPT) 30 U/L (10-68); BILIRUBIN - TOTAL 0.78 mg/dL (0.2-1.3); CALC OSMOLALITY 274 mosm/kg (275-300); CALCIUM 8.1 mg/dL (8.5-10.1); CHLORIDE - SERUM 107 mmol/L (98-107); GLUCOSE 98 mg/dL (74-106); PROTEIN - SERUM 4.6 g/dL (6.4-8.2); SODIUM 136 mmol/L (136-145); UREA NITROGEN 22 mg/dL (7-18); eGFR NON AFRICAN AMERICAN 76 mL/min (90-120)
[2020-08-02 04:50] LABS: POTASSIUM - SERUM 4.5 mmol/L (3.5-5.1)
--- NOTE | 2020-08-02 11:06 | NUR ---
Nutrition Follow-up: POD 4 CABG. Good appetite/PO intake; reports eating ~90% of breakfast this AM. Denies N/V/C/D, chewing/swallowing difficulties. Diet: Regular, gluten-free PO intake: 50-100% Wt: 156.5# (08/02); 152.1# (07/29) Last BM: 08/02 Labs noted: Ca 8.1, Alb 2.1 Meds noted: Humalog, Protonix, Senokot, Colace -Encourage PO intake and honor food preferences within diet restrictions. -RD follow-up: 08/04
[2020-08-03] VITALS (21 sets, daily range): BP systolic 97–150; BP diastolic 53–687
[2020-08-03 03:48] LABS: HEMATOCRIT 28.1 % (42.0-54.0); HEMOGLOBIN 9.1 g/dL (13.5-17.5); MCH 29.9 pg (26.0-34.0); MCHC 32.4 g/dL (31.0-37.0); MCV 92.4 fL (80.0-100.0); RBC 3.04 10x6/uL (4.20-6.10); RDW 15.5 % (11.5-14.5); WBC 5.1 10x3/uL (4.8-10.8)
[2020-08-03 04:08] LABS: ALBUMIN 2.3 g/dL (3.4-5.0); BILIRUBIN - TOTAL 0.78 mg/dL (0.2-1.3); CALCIUM 8.3 mg/dL (8.5-10.1); CARBON DIOXIDE 31.1 mmol/L (21.0-32.0); CREATININE - SERUM 1.1 mg/dL (0.6-1.3)
[2020-08-03 04:23] LABS: ANION GAP 8.6 mmol/L (8-16); POTASSIUM - SERUM 3.7 mmol/L (3.5-5.1)
--- NOTE | 2020-08-03 07:45 | NUR ---
SHIFT REPORT RECEIVED. UP IN CHAIR. ON ROOM AIR. VSS. NO FEVER NOTED. DENIES ANY PAIN AT THIS TIME. 20G PIV TO RIGHT FOREARM SALINE LOCK. CALL LIGHT IN REACH. WILL CONTINUE TO MONITOR.
--- NOTE | 2020-08-03 12:00 | NUR ---
PT HAS HAD 2 LOOSE BM. HAS HAD TROUBLE MAKING IT TO THE BATHROOM. CLEAN GOWN PROVIDED. CLEAN LINENS FOR CHAIR PROVIDED. WILL CONTINUE TO MONITOR.
--- NOTE | 2020-08-03 13:26 | NUR ---
CARMONA CATHETER WAS REMOVED EARLY AM BY CUSTOMER SUPPORT PROFESSIONAL. PATIENT HAS VOICED SEVERAL TIMES BUT STILL NOT GETTING RELIEF. BLADDER SCANNER SHOWED PT TO HAVE 872ML OF URINE. DR. BAZAN NOTIFIED. ORDERED CARMONA CATHETER TO BE RE-INSERTED FOR URINE RETENTION.
--- NOTE | 2020-08-03 13:57 | NUR ---
16FRENCH COUDE TIP CARMONA INSERTED AT THIS TIME PER ORDER. CARMONA CATHETER CLOGGED RIGHT AWAY. FLUSHED IT WITH 10CC NS. CARMONA CATHETER STARTED TO DRAIN ADEQUATELY. 400CC OF DARK URINE NOTED. CLAMPED FOR A FEW MINUTES TO PREVENT BLADDER SPASM. PT TOLERATED PROCEDURE WELL. WILL CONTINUE TO MONITOR.
--- NOTE | 2020-08-03 16:25 | NUR ---
DUNIA IBANEZ NOTIFIED THAT PT WAS MOVED TO ROOM 2303 IN ICU.
--- NOTE | 2020-08-03 17:44 | NUR ---
DINNER TRAY DELIVERED TO ROOM. PT REFUSED TO EAT AT THIS TIME. WANTED TO CONTINUE SLEEPING.
--- NOTE | 2020-08-03 19:00 | NUR ---
PT AND REPORT RECIEVED, SITTING IN BED WATCHING TV, DENIES ANY NEEDS AT THIS TIME.
[2020-08-04] VITALS (21 sets, daily range): BP systolic 80–132; BP diastolic 48–83
[2020-08-04 04:37] LABS: HEMATOCRIT 27.9 % (42.0-54.0); HEMOGLOBIN 9.1 g/dL (13.5-17.5); MCH 29.9 pg (26.0-34.0); MCHC 32.6 g/dL (31.0-37.0); MCV 91.8 fL (80.0-100.0); MEAN PLATELET VOLUME 8.9 fL (7.4-10.4); RBC 3.04 10x6/uL (4.20-6.10); RDW 15.2 % (11.5-14.5); WBC 5.7 10x3/uL (4.8-10.8)
[2020-08-04 05:03] LABS: ALBUMIN 2.3 g/dL (3.4-5.0); ALKALINE PHOSPHATASE 71 U/L (30-120); ALT (SGPT) 25 U/L (10-68); BILIRUBIN - TOTAL 0.62 mg/dL (0.2-1.3); CALC OSMOLALITY 282 mosm/kg (275-300); CARBON DIOXIDE 29.8 mmol/L (21.0-32.0); CHLORIDE - SERUM 105 mmol/L (98-107); GLUCOSE 92 mg/dL (74-106); POTASSIUM - SERUM 3.2 mmol/L (3.5-5.1); SODIUM 141 mmol/L (136-145); UREA NITROGEN 18 mg/dL (7-18); eGFR NON AFRICAN AMERICAN 76 mL/min (90-120)
--- NOTE | 2020-08-04 05:30 | NUR ---
DRESSING CHANGE, NO REDNESS OR DRAINAGE NOTED, POVIDONE OINTMRNT PLACED AROUND INCISIONS, 4X4'S PLACED AND TEGADERM COVERING. TOLERATED WELL. RESTING AT THIS TIME. WILL CONTINUE TO MONITOR
--- NOTE | 2020-08-04 08:58 | NUR ---
Nutrition follow-up: Visited with pt during breakfast Pt ate 100% of breakfast; reports good appetite Labs reviewed Wt: 146# +BM Pt with good po intake at this time Currently meeting nutritional goals. RDN will follow-up: 08/09/20
--- NOTE | 2020-08-04 11:55 | MORECARE ---
CASE MANAGEMENT DISCHARGE SUMMARY PATIENT: ELKE IBANEZ UNIT: [id number] ADM DATE: 07/29/20 AGE: 79 : 40 SEX: M ROOM/BED: D.2303 AUTHOR: RADHA,DOC PHYSICIAN: REFERRING PHYSICIAN: ODALIS COOL MD DATE OF SERVICE: 08/04/20 Case Management Discharge Planning Summary COMMENTS ENTERED DATE: 08/04/20 11:51 CT COMMENT TYPE: Discharge Planning REVIEWER: Daisha Zuñiga CM met with patient to discuss discharge planning / needs. CM discussed availability of home health, rehab services, and medical equipment. Patient states he plans to discharge to home where he lives with his , Roxanne. States the home environment is safe. Denies need for home health or DME. States his will transport him home upon hospital DC. CM explained and served DC IMM. Copy on chart. CM will continue to follow and assist as needed with discharge planning / needs. DCP REVIEW SUMMARY ANTICIPATED D/C DATE: 08/05/2020 EXPECTED LOS : 7 CASE STATUS: DCP Initiated INITIAL REVIEW: 08/04/2020 INITIAL REVIEWER: Daisha Zuñiga FINAL DISCHARGE DISPOSITION: : FINAL REVIEWER: FINAL REVIEW DATE: DCP Focus Questions & Answers DCP Screen QUESTION: ANSWER High Risk Factors: : None Walking limitation: Patient stated self rated walking limitation present? : No Age: : 65 - 79 Prior living environment: : Lives with others Disability ranking: : Grade 1: No significant disability DCP Evaluation QUESTION: ANSWER Patient and/or caregiver agree upon recommended discharge plan? : Yes Family / Caregiver's ability to cope with chronic illness: : a. Adequate (ability to meet patient's medical needs, ensures patient attends medical appts.) Patient's current cognitive status: : *Oriented to person, place, situation, time and present Patient's ability to cope with chronic illness : a. Adequate (0-3 ED visits in 6 mos., adequate financial resources, attends scheduled appts.) Does the patient have the ability to pay for or attain post discharge needs / services? : Yes Functional screen assessment: : Basic needs can adequately be met by self Family / Caregiver's ability to cope with chronic illness: : a. Adequate (ability to meet patient's medical needs, ensures patient attends medical appts.) Physical Status: : Independent with ADL's Equipment needed for post hospitalization: : None Is there a likelihood that the patient will require additional services to return to the preadmission environment? : No Living Arrangements: : Home with Spouse/Significant Other Results of this evaluation have been discussed with: : Patient Patient with capacity for self-care or can be cared for in same environment as prior to hospitalization? : Yes Baseline cognitive status: : *Oriented to person, place, situation, time and present Physical environment modification needed / anticipated for discharge: : No Preadmission facility can/cannot provide post hospital level of care needs: : Can - at same level of care as preadmission Medication Management: : Patient states can afford medications Planned post hospital services available for patient? : Yes Pharmacy name(s): : [facility] Planned post hospital services covered by insurance plan? : Yes Does Patient have transportation to get home and to follow-up medical appointments when discharged from the hospital? : Yes Would patient like to participate in any Care Coordination programs (if applicable): : Not applicable Does the patient have electricity at home? : Yes Does the patient have running water in their house? : Yes Equipment in use: : None Mental health screen: : No mental health history Psychosocial status: : Independent adult (65+) Abuse/Neglect: : None Resources / Services in place: : None DCP Re-evaluation QUESTION: ANSWER Would patient like to participate in any Care Coordination programs (if applicable): : Not applicable PATIENT: ELKE IBANEZ ENCOUNTER: [id number] MEDICAL RECORD#: [id number] ADMISSION DATE: 07/29/2020 DISCHARGE DATE: ATTENDING MD: ODALIS KING : AGE: 79 MARITAL STATUS: M DC PLAN ID: [id number] FACILITY: [facility] PRINTED ON: 08/04/20 11:55 CT All edits/amendments must be made on the electronic document DICTATION DATE: 08/04/20 115 SHOP GIRL: UNA 08/04/20 115 RPT#: [id number] DC DATE: STATUS: ADM IN [facility] [address] [place] [address] END OF REPORT
--- NOTE | 2020-08-04 15:05 | NUR ---
rosie rogers's nurse at bedside to remove tpm wires and whit drain. pt positioned for comfort will continue to monitor.
--- NOTE | 2020-08-04 15:34 | NUR ---
PATIENT STOOD UP WITH MIN ASST AND WALKED 270 FEET WITH MIN ASST, WITHOUT ASST DEVICE. PATIENT DOES GET UNSTEADY WHEN MAKING TURNS.
[2020-08-05] VITALS (14 sets, daily range): BP systolic 107–128; BP diastolic 56–94
[2020-08-05 04:36] LABS: HEMATOCRIT 29.3 % (42.0-54.0); HEMOGLOBIN 9.5 g/dL (13.5-17.5); MCH 30.1 pg (26.0-34.0); MCHC 32.4 g/dL (31.0-37.0); MCV 92.7 fL (80.0-100.0); MEAN PLATELET VOLUME 8.7 fL (7.4-10.4); RBC 3.16 10x6/uL (4.20-6.10); RDW 15.1 % (11.5-14.5)
[2020-08-05 05:08] LABS: ALBUMIN 2.3 g/dL (3.4-5.0); ANION GAP 6.5 mmol/L (8-16); BILIRUBIN - TOTAL 0.37 mg/dL (0.2-1.3); CARBON DIOXIDE 32.4 mmol/L (21.0-32.0); CREATININE - SERUM 1.2 mg/dL (0.6-1.3); PROTEIN - SERUM 5.1 g/dL (6.4-8.2)
[2020-08-05 05:10] LABS: POTASSIUM - SERUM 3.9 mmol/L (3.5-5.1)
--- NOTE | 2020-08-05 10:16 | NUR ---
PATIENT UP AND WALKING WITH PHYSICAL THERAPY.
[2020-08-05] MEDS ORDERED: LOPRESSOR25 MG PO (10:31)
[2020-08-05] MEDS ORDERED: HEMOCYTE PLUS C1 CAP PO (10:31)
[2020-08-05] MEDS ORDERED: LASIX40 MG PO (10:36)
[2020-08-05] MEDS ORDERED: K-DUR20 MEQ PO (10:39)
--- NOTE | 2020-08-05 14:10 | NUR ---
PATIENT DISCHARGED HOME WITH IV DISCONTINUED AND PATIENT TAKEN VIA WHEELCHAIR TO ER TO BE DISCHARGED. DISCUSSED PAPERWORK AND RETURN VISITS TP PHYSICIANS.INSURANCE CARD TAKEN CARE OF WITH CASE MANAGEMENT.
--- NOTE | 2020-08-06 14:26 | MORECARE ---
CASE MANAGEMENT DISCHARGE SUMMARY PATIENT: ELKE IBANEZ UNIT: [id number] ADM DATE: 07/29/20 AGE: 79 : 40 SEX: M ROOM/BED: D.2303 AUTHOR: RADHA,DOC PHYSICIAN: REFERRING PHYSICIAN: ODALIS COOL MD DATE OF SERVICE: 08/06/20 Case Management Discharge Planning Summary COMMENTS ENTERED DATE: 08/06/20 14:22 CT COMMENT TYPE: Discharge Planning REVIEWER: Daisha Zuñiga Late entry 08/05/2020 10:00. CM met with patient about MD order for Nebulizer. Patient signed TINO for [facility]. CM called and spoke with Jason at [facility] about orders. [facility] informed CM that they did not have the ordered Neb medication. States patient will need to obtain Rx from pharmacy but DME will deliver Nebulizer machine. CM met with patient and his and obtained Rx insurance information and called patient's pharmacy and verified that cost of Rx would be $40.00 monthly. Patient and both state they can afford that and verbalized satisfaction with discharge plans. CM faxed orders for Nebulizer to [facility]. DME will deliver Nebulizer to patient's home today and Patient / will obtain Nebulizer Rx from pharmacy. ENTERED DATE: 08/04/20 11:51 CT COMMENT TYPE: Discharge Planning REVIEWER: Daisha Zuñiga CM met with patient to discuss discharge planning / needs. CM discussed availability of home health, rehab services, and medical equipment. Patient states he plans to discharge to home where he lives with his , Roxanne. States the home environment is safe. Denies need for home health or DME. States his will transport him home upon hospital DC. CM explained and served DC IMM. Copy on chart. CM will continue to follow and assist as needed with discharge planning / needs. DCP REVIEW SUMMARY ANTICIPATED D/C DATE: 08/05/2020 EXPECTED LOS : 7 CASE STATUS: DCP Initiated INITIAL REVIEW: 08/04/2020 INITIAL REVIEWER: Daisha Zuñiga FINAL DISCHARGE DISPOSITION: : FINAL REVIEWER: FINAL REVIEW DATE: DCP Focus Questions & Answers DCP Screen QUESTION: ANSWER High Risk Factors: : None Walking limitation: Patient stated self rated walking limitation present? : No Age: : 65 - 79 Prior living environment: : Lives with others Disability ranking: : Grade 1: No significant disability DCP Evaluation QUESTION: ANSWER Patient and/or caregiver agree upon recommended discharge plan? : Yes Patient's current cognitive status: : *Oriented to person, place, situation, time and present Patient's ability to cope with chronic illness : a. Adequate (0-3 ED visits in 6 mos., adequate financial resources, attends scheduled appts.) Family / Caregiver's ability to cope with chronic illness: : a. Adequate (ability to meet patient's medical needs, ensures patient attends medical appts.) Does the patient have the ability to pay for or attain post discharge needs / services? : Yes Functional screen assessment: : Basic needs can adequately be met by self Family / Caregiver's ability to cope with chronic illness: : a. Adequate (ability to meet patient's medical needs, ensures patient attends medical appts.) Physical Status: : Independent with ADL's Equipment needed for post hospitalization: : None Is there a likelihood that the patient will require additional services to return to the preadmission environment? : No Living Arrangements: : Home with Spouse/Significant Other Results of this evaluation have been discussed with: : Patient Patient with capacity for self-care or can be cared for in same environment as prior to hospitalization? : Yes Baseline cognitive status: : *Oriented to person, place, situation, time and present Physical environment modification needed / anticipated for discharge: : No Preadmission facility can/cannot provide post hospital level of care needs: : Can - at same level of care as preadmission Medication Management: : Patient states can afford medications Planned post hospital services available for patient? : Yes Pharmacy name(s): : [facility] Planned post hospital services covered by insurance plan? : Yes Does Patient have transportation to get home and to follow-up medical appointments when discharged from the hospital? : Yes Would patient like to participate in any Care Coordination programs (if applicable): : Not applicable Does the patient have electricity at home? : Yes Does the patient have running water in their house? : Yes Equipment in use: : None Mental health screen: : No mental health history Psychosocial status: : Independent adult (65+) Abuse/Neglect: : None Resources / Services in place: : None DCP Re-evaluation QUESTION: ANSWER Would patient like to participate in any Care Coordination programs (if applicable): : Not applicable PATIENT: ELKE IBANEZ ENCOUNTER: [id number] MEDICAL RECORD#: [id number] ADMISSION DATE: 07/29/2020 DISCHARGE DATE: 08/05/2020 ATTENDING MD: ODALIS KING : [birth year] AGE: 79 MARITAL STATUS: M DC PLAN ID: [id number] FACILITY: [facility] PRINTED ON: 08/06/20 14:26 CT All edits/amendments must be made on the electronic document DICTATION DATE: 08/06/201425 MANAGER INTEGRATION: UNA 08/06/201425 RPT#: [id number] DC DATE:08/05/20 STATUS: DIS IN [facility] [address] [place] [address] END OF REPORT
--- NOTE | 2020-08-06 16:03 | MORECARE ---
CASE MANAGEMENT DISCHARGE SUMMARY PATIENT: ELKE IBANEZ UNIT: [id number] ADM DATE: 07/29/20 AGE: 79 : 40 SEX: M ROOM/BED: D.2303 AUTHOR: RADHA,DOC PHYSICIAN: REFERRING PHYSICIAN: ODALIS COOL MD DATE OF SERVICE: 08/06/20 Case Management Discharge Planning Summary COMMENTS ENTERED DATE: 08/06/20 14:22 CT COMMENT TYPE: Discharge Planning REVIEWER: Daisha Zuñiga Late entry 08/05/2020 10:00. CM met with patient about MD order for Nebulizer. Patient signed TINO for [facility]. CM called and spoke with Jason at [facility] about orders. [facility] informed CM that they did not have the ordered Neb medication. States patient will need to obtain Rx from pharmacy but DME will deliver Nebulizer machine. CM met with patient and his and obtained Rx insurance information and called patient's pharmacy and verified that cost of Rx would be $40.00 monthly. Patient and both state they can afford that and verbalized satisfaction with discharge plans. CM faxed orders for Nebulizer to [facility]. DME will deliver Nebulizer to patient's home today and Patient / will obtain Nebulizer Rx from pharmacy. ENTERED DATE: 08/04/20 11:51 CT COMMENT TYPE: Discharge Planning REVIEWER: Daisha Zuñiga CM met with patient to discuss discharge planning / needs. CM discussed availability of home health, rehab services, and medical equipment. Patient states he plans to discharge to home where he lives with his , Roxanne. States the home environment is safe. Denies need for home health or DME. States his will transport him home upon hospital DC. CM explained and served DC IMM. Copy on chart. CM will continue to follow and assist as needed with discharge planning / needs. DCP REVIEW SUMMARY ANTICIPATED D/C DATE: 08/05/2020 EXPECTED LOS : 7 CASE STATUS: DCP Initiated INITIAL REVIEW: 08/04/2020 INITIAL REVIEWER: Daisha Zuñiga FINAL DISCHARGE DISPOSITION: : FINAL REVIEWER: FINAL REVIEW DATE: DCP Focus Questions & Answers DCP Screen QUESTION: ANSWER High Risk Factors: : None Walking limitation: Patient stated self rated walking limitation present? : No Age: : 65 - 79 Prior living environment: : Lives with others Disability ranking: : Grade 1: No significant disability DCP Evaluation QUESTION: ANSWER Patient and/or caregiver agree upon recommended discharge plan? : Yes Patient's current cognitive status: : *Oriented to person, place, situation, time and present Patient's ability to cope with chronic illness : a. Adequate (0-3 ED visits in 6 mos., adequate financial resources, attends scheduled appts.) Family / Caregiver's ability to cope with chronic illness: : a. Adequate (ability to meet patient's medical needs, ensures patient attends medical appts.) Does the patient have the ability to pay for or attain post discharge needs / services? : Yes Functional screen assessment: : Basic needs can adequately be met by self Family / Caregiver's ability to cope with chronic illness: : a. Adequate (ability to meet patient's medical needs, ensures patient attends medical appts.) Physical Status: : Independent with ADL's Equipment needed for post hospitalization: : None Is there a likelihood that the patient will require additional services to return to the preadmission environment? : No Living Arrangements: : Home with Spouse/Significant Other Results of this evaluation have been discussed with: : Patient Patient with capacity for self-care or can be cared for in same environment as prior to hospitalization? : Yes Baseline cognitive status: : *Oriented to person, place, situation, time and present Physical environment modification needed / anticipated for discharge: : No Preadmission facility can/cannot provide post hospital level of care needs: : Can - at same level of care as preadmission Medication Management: : Patient states can afford medications Planned post hospital services available for patient? : Yes Pharmacy name(s): : [facility] Planned post hospital services covered by insurance plan? : Yes Does Patient have transportation to get home and to follow-up medical appointments when discharged from the hospital? : Yes Would patient like to participate in any Care Coordination programs (if applicable): : Not applicable Does the patient have electricity at home? : Yes Does the patient have running water in their house? : Yes Equipment in use: : None Mental health screen: : No mental health history Psychosocial status: : Independent adult (65+) Abuse/Neglect: : None Resources / Services in place: : None DCP Re-evaluation QUESTION: ANSWER Would patient like to participate in any Care Coordination programs (if applicable): : Not applicable PATIENT: ELKE IBANEZ ENCOUNTER: [id number] MEDICAL RECORD#: [id number] ADMISSION DATE: 07/29/2020 DISCHARGE DATE: 08/05/2020 ATTENDING MD: ODALIS KING : [id number] AGE: 79 MARITAL STATUS: M DC PLAN ID: [id number] FACILITY: [facility] PRINTED ON: 08/06/20 16:03 CT All edits/amendments must be made on the electronic document DICTATION DATE: 08/06/201602 LEAD SHAREPOINT DEVELOPER: UNA 08/06/201602 RPT#: [id number] DC DATE:08/05/20 STATUS: DIS IN [facility] [address] [place] [address] END OF REPORT
== END 2020-08-05 14:17 | disposition home or self-care (01) | DRG 232 ==
LOC: EDSTATUS 13:00 → D.RAD 13:00 → D.CVICU 07-29 05:10 → D.SDCHOLD 07-29 05:10 → D.CVICU 07-29 10:42 → D.SDCHOLD 07-29 13:00 → D.ICU 08-03 14:37
PROVIDERS: ADMIT Thoracic Surgery (Cardiothoracic Vascular Surgery); ATTEND Thoracic Surgery (Cardiothoracic Vascular Surgery)
PROC: 027035Z Dilation of Coronary Artery, One Artery with Two Drug-eluting Intraluminal Devices, Percutaneous Approach (ICD-10-PCS; 2020-07-29)
PROC: 021209W Bypass Coronary Artery, Three Arteries from Aorta with Autologous Venous Tissue, Open Approach (ICD-10-PCS; 2020-07-29)
PROC: 06BP4ZZ Excision of Right Saphenous Vein, Percutaneous Endoscopic Approach (ICD-10-PCS; 2020-07-29)
PROC: 4A033BC Measurement of Arterial Pressure, Coronary, Percutaneous Approach (ICD-10-PCS; 2020-07-29)
PROC: 0210099 Bypass Coronary Artery, One Artery from Left Internal Mammary with Autologous Venous Tissue, Open Approach (ICD-10-PCS; principal; 2020-07-29 07:30)
DX: I25.10 Atherosclerotic heart disease of native coronary artery without angina pectoris (principal); D62 Acute posthemorrhagic anemia; I48.20 Chronic atrial fibrillation, unspecified; J90 Pleural effusion, not elsewhere classified; J98.11 Atelectasis; K21.9 Gastro-esophageal reflux disease without esophagitis; N40.0 Benign prostatic hyperplasia without lower urinary tract symptoms; Z87.891 Personal history of nicotine dependence; M19.90 Unspecified osteoarthritis, unspecified site; G89.29 Other chronic pain; M54.9 Dorsalgia, unspecified; F32.9 Major depressive disorder, single episode, unspecified; I10 Essential (primary) hypertension; D50.0 Iron deficiency anemia secondary to blood loss (chronic); I49.9 Cardiac arrhythmia, unspecified

== ENCOUNTER → 2020-08-10 08:36 | Outpatient (CLI) | payer MEDICARE, OTHER ==
[2020-07-30 11:56] VITALS: BMI 22.5
[~2020-08-10 08:36] MED LIST changes: +BAYER CHEWABLE81 MG PO; +GALZIN25 MG PO; +HEMOCYTE PLUS C1 CAP PO; +K-DUR20 MEQ PO; +LASIX40 MG PO; +LOPRESSOR25 MG PO; +VITAMIN D325 MC1 PO; +glucosamine chondroi
[2020-08-10 09:06] LABS: BASOPHILS 1.2 % (0-2); HEMATOCRIT 30.8 % (42.0-54.0); HEMOGLOBIN 9.8 g/dL (13.5-17.5); IMMATURE GRANULOCYTES 2.2 % (0-5); LYMPHOCYTE ABS# 1.54 10x3/uL (1.32-3.57); LYMPHOCYTES 17.1 % (15-50); MCH 29.7 pg (26.0-34.0); MCHC 31.8 g/dL (31.0-37.0); MCV 93.3 fL (80.0-100.0); MEAN PLATELET VOLUME 8.4 fL (7.4-10.4); MONOCYTES 6.8 % (2-11); NEUTROPHIL ABS# 5.99 10x3/uL (1.78-5.38); NEUTROPHILS 66.7 % (40-80); RDW 15.2 % (11.5-14.5)
[2020-08-10 09:17] LABS: PLATELET COUNT 273 10x3/uL (130-400)
== END | disposition home or self-care (01) ==
LOC: D.RAD 08:36 → D.LAB 08:36
PROVIDERS: ATTEND Thoracic Surgery (Cardiothoracic Vascular Surgery)
DX: Z95.1 Presence of aortocoronary bypass graft (principal)

== ENCOUNTER → 2020-09-01 08:20 | Outpatient (CLI) | payer MEDICARE, OTHER ==
[2020-07-30 11:56] VITALS: BMI 22.5
[2020-09-01 09:13] LABS: BASOPHILS 0.7 % (0-2); EOSINOPHILS 8.4 % (0-7); HEMATOCRIT 29.5 % (42.0-54.0); HEMOGLOBIN 9.6 g/dL (13.5-17.5); IMMATURE GRANULOCYTES 0.3 % (0-5); LYMPHOCYTE ABS# 1.16 10x3/uL (1.32-3.57); LYMPHOCYTES 19.9 % (15-50); MCH 30.6 pg (26.0-34.0); MCHC 32.5 g/dL (31.0-37.0); MCV 93.9 fL (80.0-100.0); MEAN PLATELET VOLUME 8.8 fL (7.4-10.4); MONOCYTES 9.1 % (2-11); NEUTROPHILS 61.6 % (40-80); RBC 3.14 10x6/uL (4.20-6.10); RDW 15.3 % (11.5-14.5); WBC 5.8 10x3/uL (4.8-10.8)
[2020-09-01 09:15] LABS: PLATELET COUNT 127 10x3/uL (130-400)
[2020-09-01 09:25] LABS: ANION GAP 10.6 mmol/L (8-16); CALCIUM 8.7 mg/dL (8.5-10.1); CARBON DIOXIDE 28.3 mmol/L (21.0-32.0); CREATININE - SERUM 1.6 mg/dL (0.6-1.3); POTASSIUM - SERUM 4.9 mmol/L (3.5-5.1)
== END | disposition home or self-care (01) ==
LOC: D.LAB 08:20
PROVIDERS: ATTEND Thoracic Surgery (Cardiothoracic Vascular Surgery)
DX: Z48.812 Encounter for surgical aftercare following surgery on the circulatory system (principal)